=== PATIENT | male | born 1980 | race Caucasian/White ===

== ENCOUNTER 2017-02-23 16:54 | Inpatient (IN) ==
[2017-02-23] MEDS ORDERED: *HR* LORazepam 1 MG TABLET PO PRN (17:15)
[2017-02-23] MEDS ORDERED: MOM Conc 10 ML UD.LIQ PO PRN (17:15)
[2017-02-23] MEDS ORDERED: *HR* LORazepam 2 MG/ML VIAL IM PRN (17:15)
[2017-02-23] MEDS ORDERED: Ibuprofen 400 MG TABLET PO PRN (17:15)
[2017-02-23] MEDS ORDERED: Haloperidol Lactate 5 MG/ML VIAL IM PRN (17:15)
[2017-02-23] MEDS: hydrOXYzine pamoate 25 MG CAPSULE PO PRN (20:03)
[2017-02-23] MEDS: Mag Hydrox/Al Hydrox/Simeth 30 ML UDC PO PRN (20:03)
--- NOTE | 2017-02-24 12:29 | Psychiatry History & Physical ---
Date of Encounter: 02/24/17 Time of Encounter: 12:20 History of Present Illness Patient Stated Chief Complaint: suicidal ideation Medicare Admission Attestation: For traditional Medicare patients the provided hospital inpatient services are reasonable and necessary and in the case of services not specified as inpatient -only under 42 CFR 419.22 (n), that they are appropriately provided as inpatient services in accordance 42 CFR 412.3. For Critical Access Hospital the patient may reasonably be expected to be discharged or transferred to a hospital within 96 hours after admission to the Critical Access Hospital. Admitted From: Home Plans for Post Hospital Care: Home History of Present Illness: Mr. Navarrete is a 36 year old male who was admitted after becoming intoxicated and superficially cutting inside of arm with a knife. Client reports he has been depressed since he was a teenager. Has experienced SI before but nothing like the past few weeks. Has never received mental health treatment of any kind. Recognized things were getting bad and called to schedule for an appointment but got admitted first. Appointment scheduled for this Friday at [facility]. Father was depressed and ended up getting treated with "Zoloft or Paxil" after struggling for many years. Client reports he thought his father improved after SSRI started. Client reports his own depression really got bad about five years ago when he lost a job he really liked. Then his son was diagnosed with Autism seven months ago. He and his have spent all of their money trying to get their son the best services-including stem cell studies. Started drinking alcohol heavily about six months ago. Currently using a fifth daily. Denies any history of withdrawals but craves the numbing feeling he gets from alcohol. No other recreational drugs. No physical health problems. Open to treatment recommendations. Discussed SSRIs since his father responded to them and he is agreeable. He does endorse some vague manic symptoms like elevated mood and grandiose thinking but reports these symptoms only last a few hours. Doubt he has a history of true nataliia but will need to monitor. Past Med Surg Social Fam HX - Past Medical History Medical history: non-contributory - Past Psychiatric History Psychiatric history: Reports: depression Family psychiatric history: Yes Family Psychiatric History Details: father-depression Family History of Suicide: Unknown - Past Surgical History Surgical History: no surgical history - Social History Smoking Status: Never smoker Smokeless Tobacco Status: No Alcohol use: none Drug use: none - Family History Mother Adopted: [place]: Anne Age: 50 Family Member Ethnicity: Non- Living Status: Still Living Hx Family Cardiac Disorders: No Hx Family Respiratory Disorders: No Hx Family Cancer: No Hx Family GI Disorders: No Hx Family Genitourinary Disorders: No Hx Family Endocrine Disorder: No Hx Family Musculoskeletal Disorders: No Hx Family Neuromuscular Disorders: No Hx Family Neurologic Disorders: No Hx Family HEENT Disorders: No Hx Family Autoimmune Disorders: No Hx Family Reproductive Disorders: No Hx Family Psychosocial Disorders: No Hx Family Medical Disorders: No Medications & Allergies No Known Home Drugs 02/24/17 [History] 3 Allergy/AdvReac Type Severity Reaction Status Date / Time No Known Allergies Allergy Verified 09/17/16 19:25 Review of Systems Constitutional: Denies: fever, chills, weakness, weight change Eyes: Denies: eye pain, vision change Ears, Nose, Throat: Denies: ear pain, throat pain, dental pain, hearing loss, congestion Cardiovascular: Denies: chest pain, palpitations, dyspnea on exertion Respiratory: Denies: cough, dyspnea, wheezes Gastrointestinal: Denies: abdominal pain, nausea, vomiting, diarrhea, constipation Genitourinary male: Denies: urgency, dysuria, frequency, genital lesions Genitourinary female: Denies: urgency, dysuria, frequency, abnormal menses, dyspareunia Musculoskeletal: Denies: joint swelling, joint pain Integumentary: Denies: rash, lesions, pruritus Neurological: Denies: headache, weakness, numbness, memory loss Endocrine: Denies: fatigue, heat or cold intolerance Hematologic/Lymphatic: Denies: easy bruising, lymphadenopathy Allergic/Immunologic: Denies: urticaria, itchy eyes Mental Status Exam Patient orientation: Yes Person, Yes Time, Yes Place Level of alertness: Alert Patient appearance: Appropriate, Well Groomed Behavior: calm, cooperative Psychomotor activity: Normal Eye contact: Maintains Eye Contact Mood description: Depressed Affect description: congruent with mood Speech pattern: Normal rate, Normal rhythm, Normal tone Speech volume: Normal Thought process: Linear Thought content: Yes Suicidal ideation, No Homicidal ideation, No Overt delusions Perceptual disturbances: No Auditory hallucinations, No Visual hallucinations Attention span: Capable of Focused Attention Memory description: Grossly Intact Patient reliability: Reliable Historian Intelligence estimate: Average Judgment: Limited Insight: Partial Exam - HEENT Head exam IM: Present: atraumatic Eye exam IM: Present: EOMI - Neurological Neurological exam IM: Present: alert, oriented X3 - Respiratory Respiratory exam IM: Present: CTAB - GI/Abdominal GI/Abdominal exam IM: Present: normal bowel sounds - Extremities Extremities exam IM: Present: full ROM - Skin Skin exam IM: Present: normal color Results - Vital Signs Vital signs: Temp Pulse Resp BP 98.1 F 99 20 146/89 02/23/17 19:37 02/23/17 21:41 02/23/17 19:37 02/23/17 21:41 Assessment and Plan (1) Major depressive disorder with current active episode Current visit: Yes Status: Acute Plan: Admit inpatient for safety and stabilization, Close observation, Suicide Precautions per unit protocol, Encourage participation in unit milieu, Group Therapy, Monitor sleep, Monitor appetite Risks, benefits, side effects, alternatives discussed w/pt: Yes Patient agreeable to treatment: Yes Plans for Post Hospital Care: Home Estimated Length of Stay (Days): 4 Qualifiers: Major depression recurrence: recurrent Major depression episode severity: severe Psychotic features: without psychotic features Qualified Code(s): F33.2 - Major depressive disorder, recurrent severe without psychotic features
[2017-02-24] MEDS: traZODone 50 MG TABLET PO PRN (21:13)
[2017-02-24] MEDS: hydrOXYzine pamoate 25 MG CAPSULE PO PRN (21:13)
[2017-02-24] MEDS: Mag Hydrox/Al Hydrox/Simeth 30 ML UDC PO PRN (21:14)
--- NOTE | 2017-02-25 13:20 | Psychiatry Progress Note ---
Date of Encounter: 02/25/17 Time of Encounter: 13:15 Subjective Interval history: States he is feeling better. Denying SI. However, he still looks flat. 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 Has spent most of his time sleeping. Client reports he was sleep deprived when he came in. Family did visit last night. Client reports they are coming again tonight. Still has [place] appointment scheduled for tomorrow. If family is comfortable having him come home and client is still denying SI it is a possibility to discharge him to this appointment tomorrow. However, don't want client to heart into health as he still looks and acts depressed. He feels Zoloft is working. Will go ahead and increase dose again today. It will be weeks before he feels the full benefit but want him to have a decent dose in case he is discharged soon. Review of Systems Constitutional: Denies: fever, chills, weakness, weight change Eyes: Denies: eye pain, vision change Ears, Nose, Throat: Denies: ear pain, throat pain, dental pain, hearing loss, congestion Cardiovascular: Denies: chest pain, palpitations, dyspnea on exertion Respiratory: Denies: cough, dyspnea, wheezes Gastrointestinal: Denies: abdominal pain, nausea, vomiting, diarrhea, constipation Musculoskeletal: Denies: joint swelling, joint pain Neurological: Denies: headache, weakness, numbness, memory loss Objective: Exam Patient orientation: Yes Person, Yes Time, Yes Place Level of alertness: Alert Patient appearance: Appropriate, Well Groomed Behavior: calm, cooperative Psychomotor activity: Normal Eye contact: Maintains Eye Contact Mood description: Depressed Affect description: congruent with mood Speech pattern: Normal rate, Normal rhythm, Normal tone Speech volume: Normal Thought process: Linear Thought content: No Suicidal ideation, No Homicidal ideation, No Overt delusions Perceptual disturbances: No Auditory hallucinations, No Visual hallucinations Judgment: Fair Insight: Partial Results - Vital Signs Vital Signs: Temp Pulse Resp BP 97.1 F L 72 20 138/90 02/25/17 08:10 02/25/17 08:10 02/25/17 08:10 02/25/17 08:10 Assessment and Plan (1) Major depressive disorder with current active episode Current visit: Yes Status: Acute Plan: Continue hospitalization, Close observation, Suicide Precautions per unit protocol, Encourage participation in unit milieu, Group Therapy, Monitor sleep, Monitor appetite Risks, benefits, side effects, alternatives discussed w/pt: Yes Patient agreeable to treatment: Yes Qualifiers: Major depression recurrence: recurrent Major depression episode severity: severe Psychotic features: without psychotic features Qualified Code(s): F33.2 - Major depressive disorder, recurrent severe without psychotic features Consult Discharge Plan - Plan Referrals: NONE,PCP [Primary Care Provider] -
[2017-02-26] MEDS: traZODone 50 MG TABLET PO PRN (00:16)
[2017-02-26 09:54] VITALS: BP 133/93
--- NOTE | 2017-02-26 11:36 | Discharge Summary ---
Date of Encounter: 02/26/17 Time of Encounter: 11:34 Diagnosis - Discharge Diagnosis (1) Major depressive disorder with current active episode Status: Acute Qualifiers: Major depression recurrence: recurrent Major depression episode severity: severe Psychotic features: without psychotic features Qualified Code(s): F33.2 - Major depressive disorder, recurrent severe without psychotic features Medications - Discharge Medications Prescriptions: Sertraline [Zoloft] 100 mg PO DAILY #30 tablet Sertraline [Zoloft] 100 mg PO DAILY #30 tablet 02/26/17 [Rx] 3 Allergy/AdvReac Type Severity Reaction Status Date / Time No Known Allergies Allergy Verified 09/17/16 19:25 Provider Date of admission: 02/23/17 16:54 Primary care physician: PCP NONE Discharging clinician: Katie Reynoso Assessment and Plan - Patient/Caregiver Discharge Instructions Activity: resume usual activities as tolerated Diet: regular diet - Follow up Plan Follow up with: NONE,PCP [Primary Care Provider] - Functional capacity at discharge: independent ambulation Overall status at discharge: Stable Disposition: Home, Self-Care Hospital Course Hospital course: Mr. Navarrete is a 36 year old male who was admitted secondary to SI, cutting behaviors, and alcohol abuse. He was started on Zoloft with good clinical results. His father had taken and responded to this medication and client was positive about taking it. He had scheduled an outpatient psychiatry appointment but missed his intake due to the hospitalization. His was able to reschedule for next month and client stated his intention to follow through with the appointment. Staff spoke with his who was comfortable having client home and denied having safety concerns. Client was denying all SI on day of discharge. Some lingering depressive symptoms but client understood medications take several weeks before their full benefit is realized. No evidence of psychosis. Denied SI/HI. - Time Spent with Patient Total time spent providing and/or coordinating discharge services: Quality - Multiple Antipsychotics Patient discharged on 2 or more antipsychotic medications: No Procedures - Procedures Procedures: Medication Management, Crisis Stabilization, Supportive Therapy, Group Therapy Mental Status Exam - Mental Status Exam Patient orientation: Yes Person, Yes Time, Yes Place Level of alertness: Alert Patient appearance: Appropriate, Well Groomed Behavior: calm, cooperative Psychomotor activity: Normal Eye contact: Maintains Eye Contact Mood description: Depressed Affect description: congruent with mood Speech pattern: Normal rate Speech Volume: Normal Thought process: Linear Thought Content: No Suicidal ideation, No Homicidal ideation, No Overt delusions Perceptual Disturbances: No Auditory hallucinations, No Visual hallucinations Judgment: Fair Insight: Partial
== END 2017-02-26 12:50 | disposition home or self-care (01) | DRG 885 ==
LOC: 1ANU 16:54
PROVIDERS: ADMIT Student in an Organized Health Care Education/Training Program; ATTEND Student in an Organized Health Care Education/Training Program

== ENCOUNTER 2019-02-06 21:54 | Observation (INO) ==
[2019-02-06] MEDS ORDERED: Acetaminophen 325 MG TABLET PO PRN (23:52)
[2019-02-07] MEDS ORDERED: GI Cocktail 40 ML EACH PO ONE (00:37)
[2019-02-07] MEDS ORDERED: *HR* Promethazine 25 MG/ML VIAL IVP PRN (00:40)
[2019-02-07] MEDS ORDERED: *HR* OxyCODONE Immed Rel 5 MG TABLET PO PRN (00:40)
[2019-02-07] MEDS ORDERED: Naloxone 0.4 MG/ML INJ IVP PRN (00:40)
[2019-02-07] MEDS ORDERED: Isovue-370 500 ML BOTTLE IVP ONE (02:10)
[2019-02-07] MEDS ORDERED: *HR* LORazepam 2 MG/ML VIAL IVP PRN (02:12)
[2019-02-07 03:06] LABS: Hematocrit 52.6 % (37.5-50.1); Hemoglobin 16.9 g/dL (12.9-16.9); Mean Corpuscular HGB Conc 32.1 g/dL (31.6-35.5); Mean Corpuscular Hemoglobin 27.9 pg (28.0-33.3); Mean Corpuscular Volume 86.9 fL (83.0-100.0); Mean Platelet Volume 10.7 fL (9.4-12.4); Platelet Count 287 K/mcL (140-400); Red Blood Count 6.05 M/mcL (4.19-5.50); Red Cell Distribution Width 13.7 % (11.5-14.5); White Blood Count 6.5 K/mcL (4.3-11.1)
[2019-02-07 03:46] LABS: BUN/Creatinine Ratio 13 (6-26); Blood Urea Nitrogen 14 mg/dL (6-20); Calcium 9.2 mg/dL (8.6-10.3); Carbon Dioxide 20 mEq/L (23-29); Chloride 104 mEq/L (98-107); Chol/HDL Ratio 8.3 (0-4.9); Cholesterol 240 mg/dL (< 200); Glucose 93 mg/dL (70-105); HDL Cholesterol 29 mg/dL (40-59); LDL Cholesterol,Calculated 173 mg/dL (0-99); Magnesium 1.6 mg/dL (1.6-2.6); Osmolality,Calculated 286 (280-300); Phosphorous 4.9 mg/dL (2.7-4.5); Potassium 4.4 mEq/L (3.5-5.1); Sodium 138 mEq/L (136-145); Thyroid Stimulating Hormone 0.948 mcIU/mL (0.340-5.600); Triglycerides 192 mg/dL (< 150); eGFR For African Americans > 60 (> 60); eGFR For Non-African Americans > 60 (> 60)
[2019-02-07] MEDS: *HR* Heparin 5,000 UNIT/ML VIAL SQ SCH ×3 (05:20→20:52)
[2019-02-07] MEDS ORDERED: Regadenoson 0.4 MG/5 ML SYRINGE IVP ONE (07:22)
[2019-02-07 08:07] LABS: Estimated Average Glucose 111 mg/dl
[2019-02-07] MEDS ORDERED: Perflutren Lipid Microsphere 1.3 ML in 0.9 % Sodium Chloride 8.7 ML IVP ONE (09:54)
[2019-02-07] MEDS: Aspirin Enteric Coated 81 MG Tablet PO SCH (11:49)
[2019-02-07] MEDS: Pantoprazole 40 MG VIAL IVP SCH (20:52)
[2019-02-08] MEDS: *HR* Heparin 5,000 UNIT/ML VIAL SQ SCH (05:11)
[2019-02-08 05:30] LABS: Hematocrit 53.6 % (37.5-50.1); Mean Corpuscular HGB Conc 31.7 g/dL (31.6-35.5); Mean Corpuscular Hemoglobin 28.3 pg (28.0-33.3); Mean Corpuscular Volume 89.3 fL (83.0-100.0); Mean Platelet Volume 10.2 fL (9.4-12.4); Platelet Count 251 K/mcL (140-400); Red Cell Distribution Width 13.8 % (11.5-14.5); White Blood Count 5.6 K/mcL (4.3-11.1)
[2019-02-08 05:50] LABS: BUN/Creatinine Ratio 15 (6-26); Blood Urea Nitrogen 17 mg/dL (6-20); Carbon Dioxide 29 mEq/L (23-29); Chloride 103 mEq/L (98-107); Glucose 98 mg/dL (70-105); Osmolality,Calculated 294 (280-300); Potassium 4.2 mEq/L (3.5-5.1); Sodium 141 mEq/L (136-145); eGFR For African Americans > 60 (> 60); eGFR For Non-African Americans > 60 (> 60)
[2019-02-08] MEDS: Aspirin Enteric Coated 81 MG Tablet PO SCH (09:01)
[2019-02-08] MEDS: Pantoprazole 40 MG VIAL IVP SCH (09:01)
[2019-02-08 11:54] VITALS: BP 120/78
== END 2019-02-08 13:07 | disposition home or self-care (01) ==
LOC: 3BNU → SUATTDRO 23:12
PROVIDERS: ADMIT Internal Medicine; ATTEND Internal Medicine